=== PATIENT | male | born 1955 | race Caucasian/White ===

== ENCOUNTER 2019-02-09 15:47 | Inpatient (IN) | payer OTHER ==
[~2019-02-09] VITALS: Ht 160 cm; Wt 76.7 kg
[2019-02-09 15:59] VITALS: BP_SYST 131
--- NOTE | 2019-02-09 16:47 | NUR ---
Patient to ER bed 2 to gown for evaluation. Side rails up. Report given to Aneesh NICOLE.
--- NOTE | 2019-02-09 16:57 | NUR ---
Patient is awake, alert, and oriented x4. Patient was in [place] for 2 weeks, vomiting and diarrhea x1 week, patient returned from [place] today. Patient is also complaining of lethargy, unable to keep anything down.
[2019-02-09 16:58] LABS: BASOPHILS % (AUTO) 0.5 % (0.0-2.0); EOSINOPHILS # (AUTO) 0.3 K/uL (0.0-0.4); HEMATOCRIT 35.7 % (36-54); HEMOGLOBIN 12.3 g/dL (14.0-18.0); LYMPHOCYTES # (AUTO) 2.5 K/uL (1.0-5.5); LYMPHOCYTES % (AUTO) 29.7 % (20.5-51.5); MEAN CORPUSCULAR HEMOGLOBIN 30 pg (27-31); MEAN CORPUSCULAR HGB CONC 35 % (32-36); MEAN CORPUSCULAR VOLUME 87 fL (79.0-98.0); MONOCYTES # (AUTO) 0.9 K/uL (0.0-1.0); MONOCYTES % (AUTO) 10.7 % (1.7-9.3); NEUTROPHILS # (AUTO) 4.7 K/uL (1.8-7.7); NEUTROPHILS % (AUTO) 55.1 % (40.0-70.0); PLATELET COUNT (AUTO) 417 K/uL (130-430); RED BLOOD CELL COUNT(AUTO) 4.11 MIL/uL (4.2-6.2); RED CELL DISTRIBUTION WIDTH 12.7 % (9.0-15.0); WHITE BLOOD COUNT (AUTO) 8.5 K/uL (4.8-10.8)
[2019-02-09 17:07] LABS: BILIRUBIN,URINE NEGATIVE (NEGATIVE); BLOOD, URINE NEGATIVE (NEGATIVE); CLARITY/URINE CLEAR (CLEAR); COLOR,URINE YELLOW (YELLOW); GLUCOSE,URINE NEGATIVE (NEGATIVE); KETONES,URINE NEGATIVE (NEGATIVE); LEUKOCYTE ESTERASE ,URINE NEGATIVE (NEGATIVE); NITRITE, URINE NEGATIVE (NEGATIVE); PROTEIN URINE 1+ (NEGATIVE)
--- NOTE | 2019-02-09 17:10 | NUR ---
ER Dr. Amaya at bedside examining patient.
[2019-02-09 17:17] LABS: CALCIUM 8.6 mg/dL (8.4-11.0); CREATININE 1.38 mg/dL (0.55-1.30); POTASSIUM 4.4 mmol/L (3.5-5.1)
[2019-02-09 17:21] LABS: PROTHROMBIN TIME 9.9 SECS (9.5-12.5)
[2019-02-09 17:23] LABS: ALBUMIN 3.7 g/dL (3.4-4.8)
[2019-02-09] MEDS ORDERED: LOVA20TA2 PO (17:35)
[2019-02-09] MEDS ORDERED: TAMS-11 PO (17:35)
[2019-02-09] MEDS ORDERED: LOSA100T3 PO (17:35)
[2019-02-09] MEDS ORDERED: METO50TA7 PO (17:35)
--- NOTE | 2019-02-09 17:35 | NUR ---
Medication reconciliation completed with information provided by patient. Any prior medication reconciliation on file was reviewed and corrected.
[2019-02-09 17:42] LABS: RBC,URINE 0-3 /HPF (0-3); WBC,URINE 0-3 /HPF (0-3)
[2019-02-09 17:43] LABS: BACTERIA,URINE FEW /HPF (None Seen); FINE GRANULAR CASTS,URINE 0-10 /LPF (None Seen); MUCUS,URINE None Seen /LPF (None Seen)
[2019-02-09] MEDS ORDERED: NACL 0.9% 2,000 ML IV ONE (17:45)
--- NOTE | 2019-02-09 18:44 | NUR ---
Patient will be admitted to care of Dr. Pompa. Admitted to medsurg unit. COREY Fernandez to give room number. Belongings list completed. Summary report printed. Report will be given at bedside.
--- NOTE | 2019-02-09 19:08 | NUR ---
Patient transported via gurney to 102B. Report called in to Diogenes Nelson RN for continuation of care.
--- NOTE | 2019-02-09 19:18 | NUR ---
ADMIT NOTE Received pt from ER to the floor with a diagnosis of severe hyponatremia. Admission process initiated. patient oriented to pain management, safety and call light-teach back done.
[2019-02-09 19:19] VITALS: BP_SYST 150
[2019-02-09 20:18] LABS: CALCIUM 7.8 mg/dL (8.4-11.0); CREATININE 1.14 mg/dL (0.55-1.30); POTASSIUM 4.2 mmol/L (3.5-5.1)
--- NOTE | 2019-02-09 20:23 | NUR ---
PHONED PAGED DR PRATIMA ALVAREZ REGARDING NA 114 .
[2019-02-09] MEDS: NACL 0.9% 1,000 ML IV SCH (20:32)
--- NOTE | 2019-02-09 20:38 | NUR ---
PAGED PAGING DR. ANDUJAR FOR ORDERS, SPOKE WITH GELA
--- NOTE | 2019-02-09 20:59 | NUR ---
DR PRATIMA ALVAREZ UPDATED & AWARE OF Na 114 .
--- NOTE | 2019-02-09 21:00 | NUR ---
new order from DR ANDUJAR keep patient NPO .
[2019-02-09] MEDS: TAMSULOSIN HCL 0.4 MG CAP PO SCH (21:23)
--- NOTE | 2019-02-09 21:53 | NUR ---
ASSIST PATIENT WITH BEDSIDE URINAL 550 ML CLEAR YELLOW URINE OUT , TOLERATED .
--- NOTE | 2019-02-09 23:33 | NUR ---
FALL MEASURES PRECAUTION IMPLEMENTED BED ALARM IS ON continue to monitor .
[2019-02-10 00:54] VITALS: BP_SYST 137
--- NOTE | 2019-02-10 03:18 | NUR ---
Hourly Rounding patient remains NPO , family assist @ the bedside call weir with patient Using urinal as needed FALL MEASURES effective .
--- NOTE | 2019-02-10 05:19 | NUR ---
CONSULTATION PAGED/CALLED Reason for Consultation: HYPONATREMIA Person Who was Notified: ENEDINA Consulting Physician: DR. MENDOZA [employer] Specialty: NEPHRO Ordering Physician: DR. ANDUJAR
[2019-02-10 08:00] VITALS: BP_SYST 138
--- NOTE | 2019-02-10 08:00 | NUR ---
initial notes rec patient awake alert but speaks gabonese only. ivf infusing well on the r ac. no infiltration noted. bed to the lowest position and side rails up and locked. call light within reached and knows when to call for assistance. denies pain and family at bedside with patient.
[2019-02-10 09:33] LABS: CALCIUM 8.5 mg/dL (8.4-11.0); CREATININE 1.28 mg/dL (0.55-1.30); POTASSIUM 4.5 mmol/L (3.5-5.1)
[2019-02-10 09:47] LABS: ALBUMIN 3.4 g/dL (3.4-4.8); THYROID STIMULATING HORMONE 2.1 uIu/mL (0.36-3.74); TOTAL BILIRUBIN 0.9 mg/dL (0.0-1.0)
[2019-02-10] MEDS: NACL 0.9% 1,000 ML IV SCH ×2 (09:50→21:00)
[2019-02-10] MEDS: LOSARTAN POTASSIUM 50 MG TABLET (COZAAR) PO SCH (09:51)
[2019-02-10] MEDS: METOPROLOL SUCCINATE 50 MG TAB.SR.24H (TOPROL XL) PO SCH (09:51)
--- NOTE | 2019-02-10 10:00 | NUR ---
rounds seen by dr crawford and with orders. up at bedside assisted by the and uses the urinal. call light withn reached.
--- NOTE | 2019-02-10 12:00 | NUR ---
rounds seen by dr bonner and with orders. family at bedside with patient.
[2019-02-10 12:35] VITALS: BP_SYST 132
--- NOTE | 2019-02-10 14:00 | NUR ---
rounds family continue to be with patient at bedside. no sob noted.
--- NOTE | 2019-02-10 15:14 | NUR ---
Dietitian Recommendations * Recommend mechanical soft diet w/ Ensure Enlive BID (ONS provides an additional 700 kcal/day and 40 gm protein/day) LP, RD Please refer to Nutrition Assessment for details.
[2019-02-10 16:17] VITALS: BP_SYST 139
--- NOTE | 2019-02-10 18:45 | NUR ---
closing notes family at bedside ,denies pain or nausea and vomiting. bed to the lowest position and side rails up and locked.
[2019-02-10 20:15] VITALS: BP_SYST 137
[2019-02-10 20:27] LABS: CALCIUM 8.3 mg/dL (8.4-11.0); CREATININE 1.28 mg/dL (0.55-1.30); POTASSIUM 4.5 mmol/L (3.5-5.1)
[2019-02-10] MEDS: TAMSULOSIN HCL 0.4 MG CAP PO SCH (21:00)
--- NOTE | 2019-02-10 21:12 | NUR ---
Patient awake assist out of bed for use of URINAL clear yellow urine noted family @ the bedside .
--- NOTE | 2019-02-10 22:16 | NUR ---
SODIUM 123 L PATIENT alert assist encourage position change pillows used for off loading .
[2019-02-11 00:38] VITALS: BP_SYST 104
--- NOTE | 2019-02-11 04:16 | NUR ---
NEW IV Re - Start 22 GAUGE RIGHT Hand , IVF infusing as ordered .
--- NOTE | 2019-02-11 06:49 | NUR ---
Nutrition Update Efrain Scale 18 noted. Pt admitted for Severe Hyponatremia Diet: Mechanical Soft BMI: 29.9 kg/m2 RD to follow per nutrition care standards.
[2019-02-11 06:53] LABS: BASOPHILS # (AUTO) 0.1 K/uL (0.0-0.2); BASOPHILS % (AUTO) 0.9 % (0.0-2.0); EOSINOPHILS # (AUTO) 0.3 K/uL (0.0-0.4); EOSINOPHILS % (AUTO) 3.7 % (0.0-4.0); HEMATOCRIT 34.2 % (36-54); HEMOGLOBIN 11.7 g/dL (14.0-18.0); LYMPHOCYTES # (AUTO) 2.8 K/uL (1.0-5.5); LYMPHOCYTES % (AUTO) 38.1 % (20.5-51.5); MEAN CORPUSCULAR HEMOGLOBIN 30 pg (27-31); MEAN CORPUSCULAR HGB CONC 34 % (32-36); MEAN CORPUSCULAR VOLUME 88 fL (79.0-98.0); MONOCYTES # (AUTO) 0.7 K/uL (0.0-1.0); MONOCYTES % (AUTO) 9.7 % (1.7-9.3); NEUTROPHILS # (AUTO) 3.4 K/uL (1.8-7.7); NEUTROPHILS % (AUTO) 47.6 % (40.0-70.0); PLATELET COUNT (AUTO) 424 K/uL (130-430); RED BLOOD CELL COUNT(AUTO) 3.87 MIL/uL (4.2-6.2); RED CELL DISTRIBUTION WIDTH 12.9 % (9.0-15.0); WHITE BLOOD COUNT (AUTO) 7.2 K/uL (4.8-10.8)
[2019-02-11 07:40] VITALS: BP_SYST 112
[2019-02-11 07:40] LABS: ALBUMIN 3.3 g/dL (3.4-4.8); CALCIUM 8.7 mg/dL (8.4-11.0); CREATININE 1.3 mg/dL (0.55-1.30); POTASSIUM 4.4 mmol/L (3.5-5.1); TOTAL BILIRUBIN 0.5 mg/dL (0.0-1.0)
--- NOTE | 2019-02-11 08:00 | NUR ---
OPENING NOTES, PT IS AAOX4, DENIES PAIN, NO SOB, NO RESP DISTRESS. SAFETY PRECAUTION IN PLACE. CALL LIGHT IN REACH. BED IN LOW POSITION. CALL LIGHT IN REACH. ENCOURAGED PT TO CALL FOR ASSIST AND PAIN MEDS. WILL CONT TO MONITOR.
[2019-02-11] MEDS: METOPROLOL SUCCINATE 50 MG TAB.SR.24H (TOPROL XL) PO SCH (08:13)
[2019-02-11] MEDS: LOSARTAN POTASSIUM 50 MG TABLET (COZAAR) PO SCH (08:14)
--- NOTE | 2019-02-11 10:00 | NUR ---
PT IN BED, NO C/O PAIN, NO SOB. FAMILY AT BEDSIDE. CALL LIGHT IN REACH. WILL CONT TO MONITOR.
[2019-02-11 11:26] VITALS: BP_SYST 114; BP_SYST 71
--- NOTE | 2019-02-11 12:20 | NUR ---
D/C Patient Patient given medication reconciliation form and D/C instructions. Exit Care provided. Patient verbalized understanding. MD discussed with patient the results and treatment provided. Ambulatory with steady gait for discharge to home. Patient in stable condition, ID band removed. IV catheter removed, intact and dressing applied, no active bleeding. NO Rx given. Patient and son instructed to continue home medications and call for appointment. Patient has to see primary care in one (1) week. Patient educated on pain management. All belongings sent with patient.
== END 2019-02-11 12:20 | disposition home or self-care (01) | DRG 391 ==
LOC: SED 15:47 → SMU 18:44
PROVIDERS: ADMIT Internal Medicine Hospice and Palliative Medicine; ATTEND Internal Medicine Hospice and Palliative Medicine
DX: A08.4 Viral intestinal infection, unspecified (principal); N17.0 Acute kidney failure with tubular necrosis; E87.1 Hypo-osmolality and hyponatremia; E86.9 Volume depletion, unspecified; I10 Essential (primary) hypertension; E78.5 Hyperlipidemia, unspecified; N40.0 Benign prostatic hyperplasia without lower urinary tract symptoms; F17.200 Nicotine dependence, unspecified, uncomplicated; E86.0 Dehydration
CPT/HCPCS: 36415; 80048; 80053; 81000-TC; 82150-TC; 83605; 83690-TC; 84443-TC; 85025; 85610-TC; 85730-TC; 96360; 96361; 99285; J7030

== ENCOUNTER 2019-08-26 08:33 | Emergency (ER) | payer OTHER ==
[~2019-08-26] VITALS: Ht 162.6 cm; Wt 68.0 kg
[~2019-08-26 08:33] MED LIST: LOSA100T3 PO; LOVA20TA2 PO; METO50TA7 PO; TAMS-11 PO
--- NOTE | 2019-08-26 08:35 | NUR ---
Patient to ER bed 08 to gown for evaluation. Side rails up.
--- NOTE | 2019-08-26 08:36 | NUR ---
Pt brought by daughter,A&Ox4, pt presents to ER with headache, L earache and HTN,current BP 134/101, pain level 3/10, skin pink and warm, cap refill <3, respirations even and unlabored.
[2019-08-26 08:40] VITALS: BP_SYST 134
--- NOTE | 2019-08-26 08:45 | NUR ---
Dr Sin at bedside examining patient
[2019-08-26] MEDS ORDERED: KETOROLAC TROMETHAMINE 15 MG VIAL IM ONE (09:00)
--- NOTE | 2019-08-26 09:35 | NUR ---
Patient given written and verbal discharge instructions and verbalizes understanding. ER MD discussed with patient the results and treatment provided. Patient in stable condition. ID arm band removed. Rx of Cipro Otic suspension given. Patient educated on pain management and to follow up with PMD. Pain Scale 3/10 tolerable for patient . Opportunity for questions provided and answered. Medication side effect fact sheet provided.
[2019-08-26 09:36] VITALS: BP_SYST 153
--- NOTE | 2019-08-26 11:07 | NUR ---
[facility] called to change prescription. Changed to ofloxacin per Dr. Sin.
== END 2019-08-26 09:36 | disposition home or self-care (01) ==
LOC: SED 08:33
DX: R51 Headache (principal); H92.02 Otalgia, left ear; I10 Essential (primary) hypertension; N40.0 Benign prostatic hyperplasia without lower urinary tract symptoms; E78.5 Hyperlipidemia, unspecified; E11.29 Type 2 diabetes mellitus with other diabetic kidney complication; N28.9 Disorder of kidney and ureter, unspecified; Z79.899 Other long term (current) drug therapy
CPT/HCPCS: 96372; 99283; J1885

== ENCOUNTER 2020-03-25 17:32 | Emergency (ER) | payer OTHER ==
[~2020-03-25] VITALS: Ht 162.6 cm; Wt 68.0 kg
[2020-03-25 17:41] VITALS: BP_SYST 136
[2020-03-25] MEDS ORDERED: NACL 0.9% 1,000 ML IV ONE (17:48)
--- NOTE | 2020-03-25 17:50 | NUR ---
Patient to ER bed 03 to gown for evaluation. Side rails up.
--- NOTE | 2020-03-25 17:55 | NUR ---
DR. SALCEDO AT BEDSIDE
[2020-03-25] MEDS ORDERED: ONDANSETRON HCL 4 MG/2 ML VIAL IVP ONE (18:00)
--- NOTE | 2020-03-25 18:00 | NUR ---
C/O N/V, GENERALIZED WEAKNESS, AND A LOW POTASSIUM LEVEL FROM EARLIER THIS WEEK. PRESENTS AAOX4, V/S STABLE
--- NOTE | 2020-03-25 18:05 | NUR ---
# 20 gauge angiocath placed to RFA. Use of asceptic technique. Opsite placed over site. Blood return noted. Blood for lab drawn from site. Flushed with 10 cc of normal saline. No evidence of infiltration noted. Patient tolerated well.
--- NOTE | 2020-03-25 18:05 | NUR ---
BLOOD LABS DRAWN AND TAKEN TO LAB
--- NOTE | 2020-03-25 18:15 | NUR ---
RADIOLOGY AT BEDSIDE
[2020-03-25 18:19] LABS: BILIRUBIN,URINE NEGATIVE (NEGATIVE); CLARITY/URINE CLEAR (CLEAR); COLOR,URINE YELLOW (YELLOW); GLUCOSE,URINE NEGATIVE (NEGATIVE); KETONES,URINE NEGATIVE (NEGATIVE); LEUKOCYTE ESTERASE ,URINE NEGATIVE (NEGATIVE); NITRITE, URINE NEGATIVE (NEGATIVE); PROTEIN URINE TRACE (NEGATIVE); UROBILINOGEN,URINE 0.2 (0.2-1.0)
[2020-03-25 18:25] LABS: BASOPHILS # (AUTO) 0.1 K/uL (0.0-0.2); BASOPHILS % (AUTO) 0.5 % (0.0-2.0); EOSINOPHILS % (AUTO) 0.1 % (0.0-4.0); HEMATOCRIT 33.8 % (36-54); HEMOGLOBIN 11.2 g/dL (14.0-18.0); LYMPHOCYTES # (AUTO) 2.5 K/uL (1.0-5.5); LYMPHOCYTES % (AUTO) 17.3 % (20.5-51.5); MEAN CORPUSCULAR HEMOGLOBIN 30 pg (27-31); MEAN CORPUSCULAR HGB CONC 33 % (32-36); MEAN CORPUSCULAR VOLUME 89 fL (79.0-98.0); NEUTROPHILS # (AUTO) 10.7 K/uL (1.8-7.7); NEUTROPHILS % (AUTO) 75.1 % (40.0-70.0); PLATELET COUNT (AUTO) 309 K/uL (130-430); RED BLOOD CELL COUNT(AUTO) 3.79 MIL/uL (4.2-6.2); RED CELL DISTRIBUTION WIDTH 13.2 % (9.0-15.0); WHITE BLOOD COUNT (AUTO) 14.2 K/uL (4.8-10.8)
[2020-03-25 18:29] LABS: BLOOD, URINE TRACE (NEGATIVE)
[2020-03-25 18:31] LABS: BACTERIA,URINE None Seen /HPF (None Seen); MUCUS,URINE None Seen /LPF (None Seen); RBC,URINE 0-3 /HPF (0-3); WBC,URINE NONE SEEN /HPF (0-3)
[2020-03-25 18:36] LABS: CALCIUM 9.2 mg/dL (8.4-11.0); CREATININE 2.23 mg/dL (0.55-1.30)
[2020-03-25 18:40] LABS: ALBUMIN 3.6 g/dL (3.4-4.8); TOTAL BILIRUBIN 0.4 mg/dL (0.0-1.0)
--- NOTE | 2020-03-25 19:10 | NUR ---
REPORT GIVEN TO COREY SANDOVAL FOR CONTINUATION OF CARE
--- NOTE | 2020-03-25 19:17 | NUR ---
report received from COREY Raza for continuation of care.
[2020-03-25 19:45] VITALS: BP_SYST 131
[2020-03-26] MEDS ORDERED: TELM40TA2 PO (23:46)
[2020-03-26] MEDS ORDERED: METO-442 PO (23:46)
[2020-03-26] MEDS ORDERED: CAT.1 PO (23:46)
[2020-03-26] MEDS ORDERED: LOVA40TA75 PO (23:46)
== END 2020-03-25 19:44 | disposition home or self-care (01) ==
LOC: SED 17:32
DX: E87.1 Hypo-osmolality and hyponatremia (principal); E11.29 Type 2 diabetes mellitus with other diabetic kidney complication; N28.9 Disorder of kidney and ureter, unspecified; I10 Essential (primary) hypertension; E78.5 Hyperlipidemia, unspecified; N40.0 Benign prostatic hyperplasia without lower urinary tract symptoms; Z79.899 Other long term (current) drug therapy
CPT/HCPCS: 36415; 71045; 81000; 80053; 82550; 84484; 85025; 93005; 96361; 96374; 99285; J2405; J7030